=== PATIENT | male | born 1990 | race Caucasian/White ===

== ENCOUNTER 2017-05-07 19:33 | Emergency (ER) | payer OTHER ==
[~2017-05-07] VITALS: Ht 185.4 cm; Wt 109.8 kg
[2017-05-07 19:45] VITALS: BP 137/84
[2017-05-07] MEDS ORDERED: DIAZEPAM 5 MG TABLET ONE (20:11)
[2017-05-07] MEDS ORDERED: KETOROLAC 30 MG/1 ML ONE (20:12)
[2017-05-07] MEDS ORDERED: KETOROLAC 30 MG/1 ML IM ONE (20:30)
[2017-05-07] MEDS ORDERED: DIAZEPAM 5 MG TABLET PO ONE (20:30)
== END 2017-05-07 20:43 | disposition home or self-care (01) ==
LOC: ED 20:37
DX: S39.012A Strain of muscle, fascia and tendon of lower back, initial encounter (principal); M62.830 Muscle spasm of back; X58.XXXA Exposure to other specified factors, initial encounter; Y93.89 Activity, other specified; Y92.89 Other specified places as the place of occurrence of the external cause; Y99.8 Other external cause status
CPT/HCPCS: 96372; 99283; J1885